=== PATIENT | male | born 1960 | race Caucasian/White ===

== ENCOUNTER 2021-07-10 00:43 | Emergency (ER) | payer OTHER ==
[~2021-07-10] VITALS: Ht 185.4 cm; Wt 104.5 kg
[2021-07-10] VITALS (7 sets, daily range): BP systolic 136–175; BP diastolic 76–85; PULSE 82–94; TEMP 98.8–98.9
== END 2021-07-10 06:22 | disposition home or self-care (01) ==
LOC: COL.ER 00:43
DX: T78.3XXA Angioneurotic edema, initial encounter (principal); E11.9 Type 2 diabetes mellitus without complications; I10 Essential (primary) hypertension
CPT/HCPCS: J0171; J1100; J1200; J7030

== ENCOUNTER 2022-03-13 12:58 | Inpatient (IN) | payer OTHER ==
[~2022-03-13] VITALS: Ht 185.4 cm; Wt 106.8 kg
[2022-03-13] VITALS (11 sets, daily range): BP systolic 145–165; BP diastolic 63–79; PULSE 82–99; TEMP 98.1–99.1
[2022-03-13 13:34] LABS: INR 1.2 (0.8-3.0); PROTHROMBIN TIME 14.2 SECONDS (9.7-12.8)
[2022-03-13 13:36] LABS: BASO % 0.8 % (0.0-2.0); EOS # 0.1 K/mm3 (0.0-0.7); EOS % 2.7 % (0.0-4.0); GRAN # 1.7 K/mm3 (1.4-6.5); GRAN % 64.3 % (42.2-75.2); LYMPH # 0.6 K/mm3 (1.2-3.4); LYMPH % 22.5 % (20.0-51.0); MEAN CELL VOLUME 76 fl (80.0-100.0); MEAN CORPUSCULAR HGB CONC 28 g/dl (33.0-37.0); MEAN PLATELET VOLUME 10.6 fl (7.4-10.4); MONO # 0.2 K/mm3 (0.1-0.6); MONO % 8.5 % (1.7-9.3); PLATELET COUNT 110 K/mm3 (130-400); RED BLOOD COUNT 3.07 M/mm3 (4.20-5.60); REDCELL DISTRIBUTION WIDTH-CV 17.6 % (11.5-14.5)
[2022-03-13 13:38] LABS: HEMATOCRIT 23.3 % (42.0-52.0); HEMOGLOBIN 6.4 g/dl (13.5-18.0); MEAN CORPUSCULAR HEMOGLOBIN 21 pg (27-31)
[2022-03-13 13:48] LABS: ALBUMIN 4.2 gm/dL (3.4-4.8); BILIRUBIN,TOTAL 0.8 mg/dL (0.2-1.2); CALCIUM 9.3 mg/dL (8.4-10.2); CREATININE, serum 1.15 mg/dL (0.72-1.25); POTASSIUM 4.5 mmol/L (3.5-4.5); TOTAL PROTEIN 7.6 gm/dL (6.2-8.1)
[2022-03-13] MEDS ORDERED: PRILOSEC 20MG20 MG PO (16:01)
[2022-03-13] MEDS ORDERED: AMARYL4 MG PO (16:02)
[2022-03-13] MEDS ORDERED: NORVASC 10MG10 MG PO (16:02)
[2022-03-13] MEDS ORDERED: PRAVACHOL 20MG20 MG PO (16:02)
[2022-03-13] MEDS ORDERED: HCTZ 25MG TAB25 MG PO (16:03)
[2022-03-13] MEDS ORDERED: GLUCOPHAGE XR500 M1 PO (16:03)
[2022-03-13] MEDS ORDERED: ADCIRCA20 MG PO (16:04)
[2022-03-13] MEDS ORDERED: TRULICITY0.75 MG/0. SQ (16:04)
[2022-03-13] MEDS ORDERED: LEVEMIR SQ (16:05)
[2022-03-13 19:54] LABS: HEMATOCRIT 21.7 % (42.0-52.0); HEMOGLOBIN 6.3 g/dl (13.5-18.0)
--- NOTE | 2022-03-13 21:24 | NUR ---
Patient assessed at this time. Alert and oriented x 4, able to make needs known. Denies having pain and discomfort at this time. Peripheral INT to right AC. Recheck of hemoglobin was 6.3. New order to give another unit of blood, and started at approximately 2111. Tolerating well, this nurse continues at bedside for first 15 minutes at this time. Scoring 3 on detox protocol, has not required any PRN medications so far this shift. Patient drank first half of bowel prep per orders, starting to have liquid stools. Patient voices no questions, needs, or concerns at this time. In bed with call light within reach.
[2022-03-14] VITALS (16 sets, daily range): BP systolic 116–159; BP diastolic 65–81; PULSE 71–89; TEMP 98.1–98.8
--- NOTE | 2022-03-14 01:38 | NUR ---
Patient's blood completed at approximately 2348. Tolerated well. Awaiting recheck of H&H at this time.
[2022-03-14 02:35] LABS: HEMATOCRIT 22.9 % (42.0-52.0); HEMOGLOBIN 6.5 g/dl (13.5-18.0)
--- NOTE | 2022-03-14 05:46 | NUR ---
Patient's recheck on Hemoglobin was 6.4 (resulted at 0240). Called to [facility], and received new order for blood, and to recheck H&H one hour after blood in complete. Called to lab and notified of order for one unit of blood at 0241. This nurse called lab again around 0500 asking about the blood, and stated that they were working on getting unit ready. Blood transfusion started at 0540. This nurse staying with patient for first 15 minutes per protocol. Blood running at 60 ml/hr at this time, and tolerating well so far. Voices no questions, needs, or concerns at this time. In bed with call light within reach.
--- NOTE | 2022-03-14 09:14 | NUR ---
Building Code Administrator met with patient to discuss discharge planning. Patient lives in [place] with his , Jo Ann ([phone]) and sees Dr. Burton for primary care. Patient obtains medications from [facility] with no difficulties. Patient does not use any DME and is independent with ADLS. Patient does not have DPOA-HC, however stated this is something he has discussed with his . Patient is not interested in completing form here at this time. Patient plans to return home at time of discharge. Discharge Plan: Home
[2022-03-14 09:20] LABS: BASO % 0.4 % (0.0-2.0); EOS # 0.1 K/mm3 (0.0-0.7); EOS % 3.8 % (0.0-4.0); GRAN # 1.6 K/mm3 (1.4-6.5); GRAN % 65.8 % (42.2-75.2); LYMPH # 0.5 K/mm3 (1.2-3.4); LYMPH % 19.6 % (20.0-51.0); MEAN CELL VOLUME 75 fl (80.0-100.0); MEAN CORPUSCULAR HGB CONC 30 g/dl (33.0-37.0); MEAN PLATELET VOLUME 10.8 fl (7.4-10.4); MONO # 0.2 K/mm3 (0.1-0.6); MONO % 9.6 % (1.7-9.3); PLATELET COUNT 102 K/mm3 (130-400); RED BLOOD COUNT 3.55 M/mm3 (4.20-5.60); REDCELL DISTRIBUTION WIDTH-CV 18.3 % (11.5-14.5)
[2022-03-14 09:21] LABS: HEMATOCRIT 26.7 % (42.0-52.0); MEAN CORPUSCULAR HEMOGLOBIN 23 pg (27-31)
[2022-03-14 09:38] LABS: ALBUMIN 3.7 gm/dL (3.4-4.8); CALCIUM 9.3 mg/dL (8.4-10.2); PHOSPHOROUS 3.9 mg/dL (2.3-4.7); POTASSIUM 4.1 mmol/L (3.5-4.5)
--- NOTE | 2022-03-14 10:17 | NUR ---
Initial visit; Patient thanked [employer] for looking in on him and offering God's blessings. [employer] will follow up when patient learns more about his health issues.
--- NOTE | 2022-03-14 13:40 | NUR ---
PATIENT TAKEN BY ENDO.
--- NOTE | 2022-03-14 13:50 | NUR ---
Primary nurse was assisted with [phone] patient care by [employer] ADN student Jennifer Benson and [facility] instructor Shelli Penaloza RN-BC.
--- NOTE | 2022-03-14 14:01 | NUR ---
PATIENT NOT IN ROOM. GONE FOR PROCEDURE. UNABLE TO DO 1400 CIWA/VITALS
[2022-03-14 18:26] LABS: HEMATOCRIT 25.7 % (42.0-52.0); HEMOGLOBIN 7.9 g/dl (13.5-18.0)
--- NOTE | 2022-03-14 20:30 | NUR ---
Pt lying down in bed. A&O x4. VSS. Shift assessment completed. No disconfort or pain are voiced at this time. Right antecubital INT, CDI, remains in place. pt scored 2 for CIWA protocol. Pt doesn't voice any pain or concerns at this time. Call light within reach.
[2022-03-15] VITALS (12 sets, daily range): BP systolic 134–157; BP diastolic 61–81; PULSE 62–89; TEMP 97.6–98.8
[2022-03-15 06:37] LABS: BASO % 0.4 % (0.0-2.0); EOS # 0.1 K/mm3 (0.0-0.7); EOS % 4.5 % (0.0-4.0); GRAN # 1.6 K/mm3 (1.4-6.5); GRAN % 66.1 % (42.2-75.2); LYMPH # 0.5 K/mm3 (1.2-3.4); LYMPH % 19.6 % (20.0-51.0); MEAN CELL VOLUME 75 fl (80.0-100.0); MEAN CORPUSCULAR HGB CONC 30 g/dl (33.0-37.0); MONO # 0.2 K/mm3 (0.1-0.6); PLATELET COUNT 101 K/mm3 (130-400); RED BLOOD COUNT 3.43 M/mm3 (4.20-5.60); REDCELL DISTRIBUTION WIDTH-CV 18.5 % (11.5-14.5)
[2022-03-15 06:48] LABS: HEMATOCRIT 25.7 % (42.0-52.0); HEMOGLOBIN 7.6 g/dl (13.5-18.0); MEAN CORPUSCULAR HEMOGLOBIN 22 pg (27-31)
[2022-03-15 07:11] LABS: ALBUMIN 3.5 gm/dL (3.4-4.8); CREATININE, serum 1.01 mg/dL (0.72-1.25); MAGNESIUM 1.9 mg/dL (1.6-2.6); PHOSPHOROUS 4.4 mg/dL (2.3-4.7); POTASSIUM 3.8 mmol/L (3.5-4.5)
[2022-03-15] MEDS ORDERED: PROTONIX 40MG T40 MG PO (09:36)
[2022-03-15] MEDS ORDERED: FERROUSAL325 MG PO (09:38)
[2022-03-15] MEDS ORDERED: VENOFER IV (09:40)
[2022-03-15] MEDS ORDERED: B-121000 MCG PO (11:52)
[2022-03-15] MEDS ORDERED: FOLIC ACID 11 MG/TA1 PO (11:52)
[2022-03-15] MEDS ORDERED: THIAMINE 1100 MG/TAB PO (11:52)
--- NOTE | 2022-03-15 11:52 | NUR ---
TRANSFUSING BLOOD. PATIENT WITH NO SIGNS OR SYMPTOMS OF REACTION. RETING IN BED WITH NO COMPLAINTS. NO COMPLAINTS.
--- NOTE | 2022-03-15 12:48 | NUR ---
BLOOD STILL TRANSFUSING. PATIENT WITH NO ISSUES OR COMPLAINTS. NO SIGNES OR SYMPTOMS OF REACTION. PATIENT IS STABLE.
--- NOTE | 2022-03-15 12:48 | NUR ---
Hospice/Home Health Aide rounds: Hospice/Home Health Aide visit attempted. Patient declined because he was watching his own cheondoism on TV.
--- NOTE | 2022-03-15 14:15 | NUR ---
PATIENT TOLERATED BLOOD INFUSION. VITALS SIGNS STABLE. PATIENT CURRENTLY RESTING IN BED. ALL DISCHARGE INSTRUCTIONS AND EDUCATION PROVIDED. PATIENT GIVEN WRITTEN PRESCRIPTION FOR IV IRON INFUSIONS. ALSO ALREADY FAXED TO [facility] (CHARGE AND HOUSE SUP AWARE). IV AND TELE DISCONTINUED.
--- NOTE | 2022-03-15 14:35 | NUR ---
PATIENT WALKED OUT BY PCT, LEFT WITH ALL BELONGINGS. PATINET LEFT IN [place] CONDITION.
[2022-03-17] MEDS ORDERED: ACTOS30 MG PO (13:23)
== END 2022-03-15 14:35 | disposition home or self-care (01) | DRG 378 ==
LOC: COL.ER 12:58 → MEDICAL 15:44
PROVIDERS: Internal Medicine; Internal Medicine Gastroenterology; Physician Assistant; ADMIT Internal Medicine
PROC: 0DB68ZZ Excision of Stomach, Via Natural or Artificial Opening Endoscopic (ICD-10-PCS; 2022-03-14)
PROC: 0DBK8ZZ Excision of Ascending Colon, Via Natural or Artificial Opening Endoscopic (ICD-10-PCS; principal; 2022-03-14 13:30)
PROC: 0DBN8ZZ Excision of Sigmoid Colon, Via Natural or Artificial Opening Endoscopic (ICD-10-PCS; 2022-03-14 13:30)
DX: K92.2 Gastrointestinal hemorrhage, unspecified (principal); D61.818 Other pancytopenia; D50.9 Iron deficiency anemia, unspecified; E78.5 Hyperlipidemia, unspecified; E11.9 Type 2 diabetes mellitus without complications; C61 Malignant neoplasm of prostate; I10 Essential (primary) hypertension; K63.5 Polyp of colon; K62.89 Other specified diseases of anus and rectum; K57.30 Diverticulosis of large intestine without perforation or abscess without bleeding; R53.81 Other malaise; R53.1 Weakness; K31.7 Polyp of stomach and duodenum; Z79.84 Long term (current) use of oral hypoglycemic drugs; Z79.899 Other long term (current) drug therapy; Z72.89 Other problems related to lifestyle; Z79.890 Hormone replacement therapy
CPT/HCPCS: C9113; J1756; J1815; J2704; J7030; P9016

== ENCOUNTER 2022-03-27 13:00 | Outpatient (RCR) | payer OTHER ==
[2022-03-17 13:13] VITALS: BP 143/70; PULSE 76; TEMP 98.6
[2022-03-20 13:02] VITALS: BP 154/81; PULSE 84; TEMP 99.2
[2022-03-24 13:08] VITALS: BP 156/76; PULSE 83; TEMP 97
[~2022-03-27] VITALS: Ht 185.4 cm; Wt 104.2 kg
[~2022-03-27 13:00] MED LIST: ACTOS30 MG PO; ADCIRCA20 MG PO; AMARYL4 MG PO; B-121000 MCG PO; FERROUSAL325 MG PO; FOLIC ACID 11 MG/TA1 PO; GLUCOPHAGE XR500 M1 PO; HCTZ 25MG TAB25 MG PO; LEVEMIR SQ; NORVASC 10MG10 MG PO; PRAVACHOL 20MG20 MG PO; PRILOSEC 20MG20 MG PO; PROTONIX 40MG T40 MG PO; THIAMINE 1100 MG/TAB PO; TRULICITY0.75 MG/0. SQ; VENOFER IV
[2022-03-27 13:30] VITALS: BP 152/71; PULSE 82; TEMP 97.4
== END 2022-03-27 14:40 | disposition home or self-care (01) ==
LOC: EUO 13:00
DX: Z79.899 Other long term (current) drug therapy (principal)
CPT/HCPCS: J1756

== ENCOUNTER → 2023-04-22 | Outpatient (CLI) | payer OTHER ==
[~2023-04-22] VITALS: Ht 185.4 cm; Wt 105.4 kg
[~2023-04-22] MED LIST changes: +DELATESTRYL200 MG/ML IM
[2023-04-22 08:24] LABS: HEMOGLOBIN 11.8 g/dl (13.5-18.0); MEAN CELL VOLUME 91 fl (80.0-100.0); MEAN CORPUSCULAR HEMOGLOBIN 30 pg (27-31); MEAN CORPUSCULAR HGB CONC 33 g/dl (33.0-37.0); MEAN PLATELET VOLUME 11.2 fl (7.4-10.4); PLATELET COUNT 97 K/mm3 (130-400); RED BLOOD COUNT 3.95 M/mm3 (4.20-5.60); REDCELL DISTRIBUTION WIDTH-CV 13.4 % (11.5-14.5)
[2023-04-22 08:25] VITALS: BP 159/79; PULSE 96; TEMP 98.1
[2023-04-22 08:25] LABS: HEMATOCRIT 35.9 % (42.0-52.0)
[2023-04-22 09:20] VITALS: BP 149/79; PULSE 87
[2023-04-22 09:40] VITALS: BP 166/94; PULSE 89
== END ==
LOC: COL.RAD 07:49
PROVIDERS: Radiology Diagnostic Radiology
DX: R16.1 Splenomegaly, not elsewhere classified (principal)
CPT/HCPCS: 28016; C1830

== ENCOUNTER 2024-01-12 01:04 | Emergency (ER) | payer OTHER ==
[~2024-01-12 01:04] MED LIST changes: +GLUCOPHAGE500 MG/TAB PO
[2024-01-12 01:05] VITALS: TEMP 100.5
[2024-01-12] MEDS ORDERED: Morphine 4 MG/ML VIAL IV ONE ×3 (01:15→04:00)
[2024-01-12] MEDS ORDERED: Ondansetron 4 MG/2 ML VIAL IV ONE (01:15)
[2024-01-12 01:21] LABS: BASO % 0.6 % (0.0-2.0); EOS # 0.1 K/mm3 (0.0-0.7); GRAN # 1.9 K/mm3 (1.4-6.5); GRAN % 57.4 % (42.2-75.2); HEMATOCRIT 30.4 % (42.0-52.0); HEMOGLOBIN 9.5 g/dl (13.5-18.0); LYMPH # 0.9 K/mm3 (1.2-3.4); LYMPH % 25.4 % (20.0-51.0); MEAN CELL VOLUME 87 fl (80.0-100.0); MEAN CORPUSCULAR HEMOGLOBIN 27 pg (27-31); MEAN CORPUSCULAR HGB CONC 31 g/dl (33.0-37.0); MEAN PLATELET VOLUME 10.9 fl (7.4-10.4); MONO # 0.4 K/mm3 (0.1-0.6); MONO % 12.4 % (1.7-9.3); PLATELET COUNT 114 K/mm3 (130-400); RED BLOOD COUNT 3.49 M/mm3 (4.20-5.60); REDCELL DISTRIBUTION WIDTH-CV 15.7 % (11.5-14.5)
[2024-01-12 01:25] LABS: INR 1.1 (0.8-3.0); PROTHROMBIN TIME 12.4 SECONDS (9.7-12.8)
[2024-01-12 01:28] LABS: PARTIAL THROMBOPLASTIN TIME 28.3 SECONDS (26.0-37.0)
[2024-01-12 01:40] LABS: ALBUMIN 3.6 g/dL (3.4-4.8); BILIRUBIN,TOTAL 0.7 mg/dL (0.2-1.2); CALCIUM 8.9 mg/dL (8.4-10.2); CREATININE, serum 1.29 mg/dL (0.72-1.25); POTASSIUM 3.6 mEq/L (3.5-4.5); TOTAL PROTEIN 6.9 g/dl (6.2-8.1)
[2024-01-12] MEDS ORDERED: Iohexol 300 - 100 ML VIAL IV ONE (02:01)
[2024-01-12] MEDS ORDERED: NS 55 ML IV ONE (02:02)
[2024-01-12 04:35] VITALS: BP 137/68; PULSE 88
== END 2024-01-12 04:50 | disposition short-term general hospital (02) ==
LOC: COL.ER 01:04
PROVIDERS: Emergency Medicine
DX: S02.91XA Unspecified fracture of skull, initial encounter for closed fracture (principal); S22.41XA Multiple fractures of ribs, right side, initial encounter for closed fracture; S30.1XXA Contusion of abdominal wall, initial encounter; S06.6X9A Traumatic subarachnoid hemorrhage with loss of consciousness of unspecified duration, initial encounter; F10.129 Alcohol abuse with intoxication, unspecified; R09.02 Hypoxemia; W10.8XXA Fall (on) (from) other stairs and steps, initial encounter
CPT/HCPCS: J2270; J2405; Q9967

== ENCOUNTER 2024-01-24 01:40 | Inpatient (IN) | payer OTHER ==
[~2024-01-24] VITALS: Ht 188 cm; Wt 99.1 kg
[2024-01-24] VITALS (18 sets, daily range): BP systolic 125–170; BP diastolic 58–91; PULSE 79–108; TEMP 97–98.7
[2024-01-24] MEDS ORDERED: Lidocaine 2% (20 MG/ML) 20 ML UROJET UR ONE ×2 (02:15→09:22)
[2024-01-24 02:48] LABS: BASO % 0.5 % (0.0-2.0); EOS % 0.3 % (0.0-4.0); GRAN # 2.9 K/mm3 (1.4-6.5); LYMPH # 0.3 K/mm3 (1.2-3.4); MEAN CELL VOLUME 92 fl (80.0-100.0); MEAN CORPUSCULAR HGB CONC 30 g/dl (33.0-37.0); MEAN PLATELET VOLUME 10.2 fl (7.4-10.4); MONO # 0.4 K/mm3 (0.1-0.6); MONO % 11.4 % (1.7-9.3); PLATELET COUNT 131 K/mm3 (130-400); REDCELL DISTRIBUTION WIDTH-CV 17.6 % (11.5-14.5)
[2024-01-24 02:50] LABS: HEMATOCRIT 24.8 % (42.0-52.0); HEMOGLOBIN 7.5 g/dl (13.5-18.0); MEAN CORPUSCULAR HEMOGLOBIN 28 pg (27-31)
[2024-01-24 02:51] LABS: INR 1.8 (0.8-3.0); PROTHROMBIN TIME 18.9 SECONDS (9.7-12.8)
[2024-01-24 03:05] LABS: CALCIUM 8.5 mg/dL (8.4-10.2); CREATININE, serum 1.15 mg/dL (0.72-1.25); POTASSIUM 4.2 mEq/L (3.5-4.5); TOTAL PROTEIN 6.4 g/dl (6.2-8.1)
[2024-01-24] MEDS ORDERED: NS 1,000 ML IV SCH (05:45)
[2024-01-24] MEDS ORDERED: TYLENOL 325MG325 MG PO (05:47)
[2024-01-24] MEDS ORDERED: ELIQUIS 5MG PO (05:47)
[2024-01-24] MEDS ORDERED: MELATONIN3 M1 PO (05:48)
[2024-01-24] MEDS ORDERED: LIDODERM 5% PATC1 EA TP (05:48)
[2024-01-24] MEDS ORDERED: ROBAXIN 75750 MG/TAB PO (05:49)
[2024-01-24] MEDS ORDERED: MIRALAX PA17 GM/Dose PO (05:49)
[2024-01-24] MEDS ORDERED: ROXICODONE 55 MG/TAB PO (05:49)
[2024-01-24] MEDS ORDERED: FLOMAX 0.40.4 MG/CAP PO (05:50)
[2024-01-24] MEDS ORDERED: SENNA-LAX8.6 MG PO (05:50)
[2024-01-24] MEDS ORDERED: Acetaminophen 325 MG TAB PO PRN (06:00)
[2024-01-24] MEDS ORDERED: Glucagon 1 MG VIAL IM PRN (06:00)
[2024-01-24] MEDS ORDERED: Dextrose 50% Water 25 GM/50 ML SYRINGE IV PRN (06:00)
[2024-01-24] MEDS ORDERED: oxyCODONE 5 MG TAB PO PRN (06:00)
[2024-01-24] MEDS ORDERED: Insulin Lispro (HumaLOG) SQ SCH ×3 (06:00→21:00)
[2024-01-24] MEDS ORDERED: Dextrose (Glucose) 15 GM (4 x 3.75 GM) Chewable TABLET PACK PO PRN (06:00)
--- NOTE | 2024-01-24 07:20 | NUR ---
DURING BEDSIDE SHIFT REPORT, [employer] NURSE HAD JUST FINISHED HAND IRRIGATING A FEW CLOTS TO KEEP CBI INFUSING. BENITO TO DD WITH LARGE AMOUNTS OF DARK BLOODY URINE WITH CLOTS. PATIENT REPORTS HE WAS JUST DISCHARGED FROM YESTERDAY. PATIENT APPARENTLY HAS A HX OF ETOH AND GOT DRUNK AND PULLED HIS BENITO OUT BALLOON INFLATED AND THEN PRESENTED LATER TO THE ER WITH GROSS HEMATURIA. PATIENT IS A&O NOW, SEEMS SOBER, ANSWERS QUESTIONS APPROPRIATLY BUT DOESN'T HAVE A GOOD REASON WHY HE PULLED HIS BENITO OUT.
--- NOTE | 2024-01-24 07:45 | NUR ---
PATIENT CALLED OUT C/O FEELING LIKE HE NEEDS TO PEE AND BLADDER DISCOMFORT. RN HAND IRRIGATED SEVERAL TIMES AND REMOVED MULTIPLE SMALL & A FEW MYLES SIZE CLOTS. CBI INFUSING WIDE OPEN, URINE IS STILL DARK BLOODY WITH CLOTS. CALLED UROLOGY, CONFIRMED NPO STATUS, AND CONSENTED PATIENT FOR SURGERY THIS AM. PATIENT ASKED RN TO CALL HIS . CALLED AND UPDATED.
--- NOTE | 2024-01-24 08:30 | NUR ---
PATIENT GOING DOWN TO OR. CONSENT ON CHART. TICKET TO RIDE ON CHART. IV FLUIDS TO GRAVITY. CBI INFUSING WIDE OPEN WITH BENITO DD WITH MOD AMOUNTS OF DARK RED URINE WITH CLOTS. PATIENT NOW OFF FLOOR.
[2024-01-24] MEDS ORDERED: NS 10 ML IV ONE (08:56)
[2024-01-24] MEDS ORDERED: Ondansetron 4 MG/2 ML VIAL ONE (08:56)
[2024-01-24] MEDS ORDERED: Lidocaine PF 2% (20 MG/ML) 5 ML VIAL ONE (08:56)
[2024-01-24] MEDS ORDERED: fentaNYL 50 MCG/ML 2 ML VIAL ONE (08:56)
[2024-01-24] MEDS ORDERED: dexAMETHasone 10 MG/ML VIAL ONE (08:56)
[2024-01-24] MEDS ORDERED: Polyethylene Glycol 3350 17 GM PDS PO SCH (09:00)
[2024-01-24] MEDS ORDERED: Methocarbamol 750 MG TAB PO SCH (09:00)
[2024-01-24] MEDS ORDERED: Ferrous Sulfate 325 MG TAB PO SCH (09:00)
[2024-01-24] MEDS ORDERED: Pantoprazole 40 MG in NS 10 ML IV SCH (09:00)
[2024-01-24] MEDS ORDERED: Lidocaine 4% Topical Patch TP SCH (09:00)
[2024-01-24] MEDS ORDERED: Folic Acid 1 MG TAB PO SCH (09:00)
--- NOTE | 2024-01-24 09:26 | NUR ---
LAB CALLED WITH CRITICAL HGB OF 6.7, PATIENT IN OR, CALLED OR AND REPORTED LAB TO OR SCIENCE TECHNICIAN/
[2024-01-24 09:29] LABS: HEMATOCRIT 21.2 % (42.0-52.0); HEMOGLOBIN 6.7 g/dl (13.5-18.0)
[2024-01-24] MEDS ORDERED: Ondansetron 4 MG/2 ML VIAL IV PRN (09:30)
[2024-01-24] MEDS ORDERED: hydrALAZINE 20 MG/ML 1 ML VIAL IV PRN (09:30)
[2024-01-24] MEDS ORDERED: droPERidol 2.5 MG/ML 2 ML VIAL IV PRN (09:30)
[2024-01-24] MEDS ORDERED: HYDROmorphone 1 MG/1 ML SYRINGE [PACU/SDC ONLY] IV PRN (09:30)
[2024-01-24] MEDS ORDERED: fentaNYL 50 MCG/ML 1 ML SYRINGE/VIAL [PACU/SDC ONLY] IV PRN (09:30)
[2024-01-24] MEDS ORDERED: NS Irrig Soln 3000 ML SOLN IR PRN (09:45)
[2024-01-24] MEDS ORDERED: Hyoscyamine 0.125 MG Sublingual TAB SL PRN (09:45)
[2024-01-24] MEDS ORDERED: fentaNYL 50 MCG/ML 2 ML VIAL IV ONE (09:48)
--- NOTE | 2024-01-24 10:10 | NUR ---
PATIENT BACK IN ROOM FROM PACU. UPON ENTERING ROOM PATIENT WAS C/O SEVERE BLADDER SPASMS AND BENITO STOPPED DRAINING WITH CBI INFUSING FAST. PATIENT C/O A LOT OF PAIN AND NOTED LEAKING AROUND CATH SITE. PATIENT HAS NOT RECEIVED ANYTHING FOR BLADDER SPASMS IN OR OR PACU, CALLED AND RECEIVED ORDERS FOR LEVSIN & VALIUM AND INSTRUCTED TO GIVE PAIN MEDS, ALL GIVEN, SEE MAR.
--- NOTE | 2024-01-24 10:25 | NUR ---
PATIENT STILL C/O SEVERE PAIN, BENITO NOT DRAINING AND B/P ELEVATED INTO THE 160'S SYSTOLIC. IRRIGATED AND GOT 3 CLOTS, BENITO NOW DRAINING WELL WITH LARGE AMOUNTS OF DARK RED URINE, CBI WIDE OPEN. RN CLARIFIED WITH PACU OF REPORTED HGB OF 6.7 WHILE IN OR, NO BLOOD WAS TRANSFUSED. CALLED HOSPITALIST, SEE ORDERS.
[2024-01-24] MEDS ORDERED: diazePAM 10 MG TAB PO ONE (10:30)
--- NOTE | 2024-01-24 11:18 | NUR ---
STARTING UNIT OF BLOOD PER ORDERS. VSS. PATIENT TOLERATING WELL SO FAR.
--- NOTE | 2024-01-24 14:11 | NUR ---
SW met with Pt bedside. Pt lives at home w/ . Pt has no DPOA. Next of kin decision maker is . Pt PCP is Edison Ordaz. Pt uses [facility] for medications. Pt has no problems affording medications. Pt qualifies for Medicare on Feb.03. Pt is concerned about increase of medical bills w/ recent hospital stays. Pt was d/c from [facility] yesterday (01/22)/ At home Pt uses: eye glasses, walker (new from d/c yesterday). fixed shower bench, protable shower chair, and has shower bars. Pt has no concerns returning home. Pt has never had HH. Discharge disposition: Home w/ spouse.
[2024-01-24] MEDS ORDERED: Pravastatin 20 MG TAB PO SCH (21:00)
[2024-01-24] MEDS ORDERED: Melatonin 3 MG TAB PO SCH (21:00)
[2024-01-25] VITALS (24 sets, daily range): BP systolic 103–148; BP diastolic 56–88; PULSE 74–100; TEMP 97.8–99.3
[2024-01-25 06:31] LABS: BASO % 0.4 % (0.0-2.0); EOS % 1.6 % (0.0-4.0); GRAN # 1.7 K/mm3 (1.4-6.5); GRAN % 66.8 % (42.2-75.2); LYMPH # 0.4 K/mm3 (1.2-3.4); LYMPH % 17.4 % (20.0-51.0); MEAN CELL VOLUME 91 fl (80.0-100.0); MEAN CORPUSCULAR HGB CONC 31 g/dl (33.0-37.0); MEAN PLATELET VOLUME 10.5 fl (7.4-10.4); MONO # 0.3 K/mm3 (0.1-0.6); MONO % 12.6 % (1.7-9.3); PLATELET COUNT 116 K/mm3 (130-400); RED BLOOD COUNT 2.25 M/mm3 (4.20-5.60)
[2024-01-25 06:37] LABS: HEMATOCRIT 20.4 % (42.0-52.0); HEMOGLOBIN 6.4 g/dl (13.5-18.0); MEAN CORPUSCULAR HEMOGLOBIN 28 pg (27-31)
[2024-01-25 07:00] LABS: CALCIUM 7.9 mg/dL (8.4-10.2); CREATININE, serum 1.08 mg/dL (0.72-1.25)
--- NOTE | 2024-01-25 07:00 | NUR ---
PAIN CONTROLLED TONIGHT WITH OXY/TYLENOL AND LEVSIN, 3 WAY BENITO PATENT/SECURE DRAINING FAIRLY CLEAR, YELLOW URINE WITH OCCASIONAL SMALL BLOOD CLOTS PRESENT, CBI INFUSING AT MODERATE RATE. IVF INFUSING PER PIV AT 100CC/HR, NPO SINCE MIDNIGHT FOR POSSIBLE PROCEDURE TODAY. REPORT GIVEN TO [facility]
--- NOTE | 2024-01-25 07:20 | NUR ---
DR COY NOTIFIED OF CONSULT PER PHONE
--- NOTE | 2024-01-25 07:30 | NUR ---
HGB 6.4 THIS AM, ATTEMPTED TO NOTIFY DR ESTRADA PER PHONE, VM MESSAGE LEFT WITH INSTRUCTIONS FOR HIM TO CALL [facility]. ROBER UPDATED WITH THIS INFO.
--- NOTE | 2024-01-25 11:53 | NUR ---
lay out worker met with pt to discuss PT reccomendation of OP PT. Pt reports he will think about this and is open to it, if reccomended. SW advised it was and he reports he has not used any place in the past. SW informed him he can think about it and see how things progress; then call SW prior to discharge if he would like this. Pt verbalized understanding of this plan. Discharge Plan: home
--- NOTE | 2024-01-25 11:57 | NUR ---
BLOOD TRANSFUSION STARTED. REVEIWED S/S OF BLOOD TRANSFUSION COMPLICATIONS WITH PATIENT, PATIENT EXPRESSED UNDERSTANDING.
--- NOTE | 2024-01-25 12:13 | NUR ---
Data: Patient accepted spiritual care visit offered during Chief Warden rounds. Doctor arrived to speak with Patient. Chief Warden waited and met with Patient after Doctor's visit. Doctor told Patient he would have a procedure at 1300. Patient had previously been at [facility]. Released; home for approximately 6 hours; returned to this ER. Assessment: Patient is frustrated that he is not healing better; however, he is grateful for the care he has received. Patient has mild anxiety. Plan of Care: Chief Warden provided ministry of presence; supportive listening; and prayer. Patient thanked Chief Warden for the visit. Chaplains will remain available as needed/requested while Patient is admitted to this hospital.
--- NOTE | 2024-01-25 14:45 | NUR ---
PATIENT OFF FLOOR WENT DOWN TO RIBBON HAND @ 1445, UNABLE TO DOCUMENT TRANFUSION VITALS DURING THS TIME.
--- NOTE | 2024-01-25 15:03 | NUR ---
Please see merge document for record of interventions, vitals and medications administered during IVC implantation with Dr. Lee.
[2024-01-25] MEDS ORDERED: Iohexol 300 - 100 ML VIAL IV ONE (15:18)
[2024-01-25] MEDS ORDERED: Midazolam 2 MG/2 ML VIAL IV SCH (15:22)
[2024-01-25] MEDS ORDERED: fentaNYL 50 MCG/ML 2 ML VIAL IV SCH (15:23)
--- NOTE | 2024-01-25 15:48 | NUR ---
PATIENT ARRIVED BACK TO FLOOR AT 1545. VSS. SEE LEAD SOFTWARE DEVELOPER VITALS FOR BLOOD TRANSFUSION VITALS UNDOCUMENTED.
[2024-01-25 20:18] LABS: HEMATOCRIT 28.6 % (42.0-52.0)
[2024-01-26] VITALS (12 sets, daily range): BP systolic 116–145; BP diastolic 66–88; PULSE 83–87; TEMP 98–99.6
--- NOTE | 2024-01-26 02:42 | NUR ---
Patient called stating "Im leaking all over the place in here." This nurse to room and patient stated he had pushed on his lower abdomen and then felt moisture around the cath and down his leg. Noted to have some old blood to scrotum. Niecy care provided. CBI continues to run at a slow rate with light pink output with occasional small clot. Does c/o bladder spasms at this time as well. Levsin and oxycodone given per dr order. Will monitor.
[2024-01-26 05:47] LABS: BASO % 0.4 % (0.0-2.0); EOS % 0.9 % (0.0-4.0); GRAN # 1.6 K/mm3 (1.4-6.5); GRAN % 69.5 % (42.2-75.2); LYMPH # 0.4 K/mm3 (1.2-3.4); LYMPH % 17.4 % (20.0-51.0); MEAN CELL VOLUME 89 fl (80.0-100.0); MEAN CORPUSCULAR HGB CONC 32 g/dl (33.0-37.0); MEAN PLATELET VOLUME 9.9 fl (7.4-10.4); MONO # 0.3 K/mm3 (0.1-0.6); MONO % 10.9 % (1.7-9.3); PLATELET COUNT 125 K/mm3 (130-400); RED BLOOD COUNT 2.82 M/mm3 (4.20-5.60); REDCELL DISTRIBUTION WIDTH-CV 16.5 % (11.5-14.5)
--- NOTE | 2024-01-26 05:53 | NUR ---
Patients CBI remained at a very slow rate over night with yellow to light pink output with occasional blood streaking. Patient states he feels as if he needs to "pass a clot" so pushes on abdomen or pushes to try to void so had a small amount of urine leakage around cath. Did received oxycodone/levsin x2 with good results. Tolerating PO. NS@75ml/hr to right AC IV infusing without difficulties. Dressing to right groin from IVC filter CDI. TELE reporting SR. Denies current needs. Call light in reach. Will monitor.
[2024-01-26 05:54] LABS: HEMOGLOBIN 7.9 g/dl (13.5-18.0); MEAN CORPUSCULAR HEMOGLOBIN 28 pg (27-31)
[2024-01-26 06:13] LABS: CREATININE, serum 1.01 mg/dL (0.72-1.25); POTASSIUM 4.2 mEq/L (3.5-4.5)
--- NOTE | 2024-01-26 08:30 | NUR ---
PATIENT IS A&O. VSS ON TELE. C/O CHRONIC BACK PAIN RATED AT 5-6 AND REQUESTING SOMETHING FOR PAIN, GAVE ROXICODONE WITH AM MEDS. NO C/O N/V. TOLERATING DIET. RIGHT FORARM IV TO INT. DC'D BENITO PER ORDERS, P&P AND STARTED PATIENT ON 6 CUP ROUTINE. BENITO TIP INTACT, NOTED 2-HALF DOLLAR SIZE CLOTS WHEN BENITO DC'D. PATIENT HAD IVC FILTER PLACED YESTERDAY IN LLE. HEAD TO TOE ASSESSMENT COMPLETE. NO OTHER NEEDS AT THIS TIME. ROUNDED ALREADY, SEE ORDERS. NO OTHER NEEDS AT THIS TIME. CALL LIGHT IN REACH. BED ALARM ON. URINAL AT BEDSIDE.
--- NOTE | 2024-01-26 13:25 | NUR ---
PATIENT AMBULATING IN HALLS WITH WALKER AND PT. TOLERATING ACTIVITY WELL SO FAR.
--- NOTE | 2024-01-26 13:30 | NUR ---
UPDATED UROLOGY, HOSPITALIST WANTS TO KEEP PATIENT OVERNIGHT AND RECHECK H&H IN AM AND RE-EVAL WHEN TO START BACK UP ON BLOOD THINNER.
--- NOTE | 2024-01-26 15:15 | NUR ---
AT BEDSIDE AND INQUIRING ABOUT NEED FOR ANOTHER NIGHT, HBG AND STARTING BACK UP ON HIS BLOOD THINNER. HGB WAS 7.9 THIS AM AFTER GETTING 2 UNITS OF BLOOD DURING HIS STAY. PLAN IS TO CHECK H&H IN AM, HOSPITALIST RECOMMENDS STAYING OFF BLOOD THINNER FOR A WEEK, PATIENT HAD IVC FILTER PLACED. WILL LIKELY DISCHARGE HOME TOMORROW
--- NOTE | 2024-01-26 23:23 | NUR ---
NURSING SHIFT ASSESSMENT COMPLETED. THE PATIENT WAS ALERT AND ORIENTED. THE PATIENT REPORTED 8/10 RIGHT HIP, RIB AND BACK PAIN. PRN PAIN MEDICAITON PROVIDED. THE PATIENT DENIED OTHER NEEDS AT THIS TIME. THE PLAN OF CARE AND EVENING MEDICAITONS REVIEWED. CALL LIGHT AND PERSONAL BELONGINGS WITHIN REACH. BED IN LOW POSITION AND THE BED ALARM IS ON.
[2024-01-27] VITALS (7 sets, daily range): BP systolic 137–146; BP diastolic 70–74; PULSE 85–86; TEMP 98.2–100.2
[2024-01-27 06:22] LABS: BASO % 0.5 % (0.0-2.0); EOS % 1.5 % (0.0-4.0); GRAN # 1.3 K/mm3 (1.4-6.5); GRAN % 64.5 % (42.2-75.2); LYMPH # 0.4 K/mm3 (1.2-3.4); MEAN CELL VOLUME 89 fl (80.0-100.0); MEAN CORPUSCULAR HGB CONC 32 g/dl (33.0-37.0); MONO # 0.3 K/mm3 (0.1-0.6); MONO % 14.5 % (1.7-9.3); PLATELET COUNT 126 K/mm3 (130-400); RED BLOOD COUNT 2.75 M/mm3 (4.20-5.60); REDCELL DISTRIBUTION WIDTH-CV 16.5 % (11.5-14.5)
[2024-01-27 06:23] LABS: HEMATOCRIT 24.4 % (42.0-52.0); HEMOGLOBIN 7.8 g/dl (13.5-18.0); MEAN CORPUSCULAR HEMOGLOBIN 28 pg (27-31)
[2024-01-27 06:29] LABS: CALCIUM 8.1 mg/dL (8.4-10.2); CREATININE, serum 0.85 mg/dL (0.72-1.25); POTASSIUM 4.1 mEq/L (3.5-4.5)
--- NOTE | 2024-01-27 08:21 | NUR ---
PT ALERT AND RESTING IN BED. HEAD TO TOE ASSESSMENT COMPLETE. NORMAL HEART SOUNDS 1 & 2. LUNG SOUNDS CLEAR IN ALL TORREZ. ABDOMEN ROUNDED AND AUDIBLE NOISES IN ALL QUADRANTS. PULSES READILY PALPABLE IN ALL EXTREMETIES. PT STATED THAT HE IS IN 5/10 PAIN LOCATED IN RIGHT HIP AND BACK. HIP PAIN DESCRIBED SHARP. GIVEN TYLENOL PER ORDER. LIDOCAINE PATCHES APPLIED TO RIGHT HIP AND RIGHT SHOULDER BLADE. PT URINE IS YELLOW AND CLEAR. CALL LIGHT WITHIN REACH. NO FURTHER NEEDS.
[2024-01-27] MEDS ORDERED: FERRO-TIME325 MG PO (10:20)
--- NOTE | 2024-01-27 11:30 | NUR ---
IVC FILTER SITE TO RIGHT GROIN COVERED WITH GAUZE AND TEGADERM. SITE CLEAN DRY AND INTACT, PT DENIES PAIN TO SITE.
--- NOTE | 2024-01-27 11:40 | NUR ---
PT IV IN R FOREARM REMOVED. PRESSURE DRESSING APPLIED. DISCHARGE INSTRUCTIONS GIVEN TO PATIENT AND FAMILY MEMBER. PT VERBALIZED UNDERSTANDING. PT IN PERSONAL CLOTHING AND ALL PERSONAL BELONGINGS WILL BE TRANSPORTED DOWN TO VEHICLE WITH PT.
== END 2024-01-27 11:45 | disposition home or self-care (01) | DRG 669 ==
LOC: COL.ER 01:40 → SURG 05:12
PROVIDERS: Emergency Medicine; Internal Medicine; Nurse Practitioner Family; Urology; ADMIT Internal Medicine
PROC: 0TCB8ZZ Extirpation of Matter from Bladder, Via Natural or Artificial Opening Endoscopic (ICD-10-PCS; 2024-01-24)
PROC: 0T5B8ZZ Destruction of Bladder, Via Natural or Artificial Opening Endoscopic (ICD-10-PCS; principal; 2024-01-24 09:30)
DX: N30.41 Irradiation cystitis with hematuria (principal); E87.1 Hypo-osmolality and hyponatremia; S22.31XA Fracture of one rib, right side, initial encounter for closed fracture; K76.6 Portal hypertension; D64.9 Anemia, unspecified; Z86.718 Personal history of other venous thrombosis and embolism; I65.29 Occlusion and stenosis of unspecified carotid artery; I10 Essential (primary) hypertension; E78.5 Hyperlipidemia, unspecified; E11.9 Type 2 diabetes mellitus without complications; Z79.4 Long term (current) use of insulin; K74.60 Unspecified cirrhosis of liver; D72.819 Decreased white blood cell count, unspecified
CPT/HCPCS: J0690; J1100; J1644; J1815; J2250; J2405; J2704; J3010; J7030; P9016; Q9967